=== PATIENT | female | born 1955 | race Caucasian/White ===

== ENCOUNTER → 2017-06-14 | Outpatient (CLI) | payer MEDICARE ==
[~2017-06-14] MED LIST: DULO60CA6 PO; FLUT1DIS IH; HYDR1TAB PO; MULT1TAB6 PO; PREG200C PO; TIOT18CA IH; ZOLP12.52 PO
--- NOTE | 2017-06-14 15:49 | KCIC ---
Three-view left knee dated 06/14/2017. No comparison available. Clinical indication: Chronic left knee pain. FINDINGS: 3 views left knee show normal bony alignment. No displaced fracture. No acute osseous or articular mallet. Mild tricompartmental hypertrophic change. No joint effusion or loose body. IMPRESSION: 1. No acute radiographic abnormality. 2. Mild tricompartmental DJD. Electronically signed by: Jonnie Tamez MD (06/14/2017 3:46 PM) [id number]
== END | disposition home or self-care (01) ==
LOC: KCIC 14:48
PROVIDERS: ATTEND Physical Medicine & Rehabilitation
DX: M17.12 Unilateral primary osteoarthritis, left knee (principal); G89.29 Other chronic pain
CPT/HCPCS: 73562

== ENCOUNTER → 2021-05-20 | Outpatient (CLI) | payer MEDICARE, OTHER ==
[~2021-05-20] MED LIST changes: -DULO60CA6 PO; +DULO60CA7 PO
--- NOTE | 2021-05-20 11:39 | RAD ---
MG BILAT SCREEN+YOSELIN 05/20/2021 8:33 AM INDICATION: Asymptomatic screening mammogram. COMPARISON: New baseline examination as prior imaging 20 years ago. TECHNIQUE: 3D tomosynthesis was performed in CC and MLO projections. 2D views were obtained from the 3D data. CAD was utilized as needed. FINDINGS: Breast density: Category B: There are scattered areas of fibroglandular density. Right breast: There are no suspicious microcalcifications, masses or areas of architectural distortio n. Left breast: There are no suspicious microcalcifications, masses or areas of architectural distortion . Bilateral mammogram is compared to prior examinations appears unchanged. IMPRESSION: Negative bilateral mammogram. BI-RADS category: 1; Negative Recommendations: Recommend annual screening mammography in one year. Electronically signed by: Kelsy Padilla MD (05/20/2021 11:36 AM) [id number]
== END ==
LOC: MAMMO 08:08
PROVIDERS: ATTEND Family Medicine
DX: Z12.31 Encounter for screening mammogram for malignant neoplasm of breast (principal)
CPT/HCPCS: 77063; 77067